=== PATIENT | male | born 1970 | race Two or more races ===

== ENCOUNTER 2017-02-28 23:34 | Emergency (ER) | payer SELFPAY ==
[~2017-02-28] VITALS: Ht 170.2 cm; Wt 86.2 kg
[2017-02-28 23:42] VITALS: BP 134/78
[2017-03-01 01:55] VITALS: BP 134/78
--- NOTE | 2017-03-01 02:08 | Emergency Room Report ---
History of Present Illness General Chief Complaint: Alcohol Intoxication Source: EMS Present Illness HPI Is a 47-year-old male brought in by EMS with chief complaint of alcohol intoxication. He was lying on the ground and bystander called 911. He has a lesion and hematoma to the left eyebrow area. Unable to get any history because of intoxication. History from EMS for Allergies: Coded Allergies: No Known Allergies (Unverified , 02/28/17) Patient History Past Medical History: see triage record, old chart reviewed Past Surgical History: unable to obtain Pertinent Family History: unable to obtain Social History: Reports: alcohol use Immunizations: other Reviewed Nursing Documentation: PMH: Agreed, PSxH: Agreed Nursing Documentation-PMH Past Medical History Deferred: Pt Cognitively Impaired Review of Systems Eye: Denies: eye pain, blurred vision ENT: Denies: ear pain, nose congestion, throat swelling Respiratory: Denies: cough, shortness of breath Cardiovascular: Denies: chest pain, palpitations Gastrointestinal: Denies: abdominal pain, diarrhea, nausea, vomiting Musculoskeletal: Denies: back pain, joint pain Skin: Denies: rash Neurological: Denies: headache, numbness Endocrine: Denies: increased thirst, increased urine Hematologic/Lymphatic: Denies: easy bruising All Other Systems: limited - Secondary to intoxication Physical Exam Vital Signs Date Time Temp Pulse Resp B/P (MAP) Pulse Ox O2 Delivery O2 Flow Rate FiO2 02/28/17 23:30 98.2 131 18 134/78 98 Room Air vitals with tachycardia Sp02 EP Interpretation: reviewed, normal General Appearance: well appearing, no apparent distress, other - Intoxicated Head: normocephalic, other - Abrasion and hematoma to left upper eyebrow area. no laceration. Eyes: bilateral eye PERRL, bilateral eye EOMI ENT: hearing grossly normal, normal pharynx Neck: full range of motion, supple, no meningismus Respiratory: chest non-tender, lungs clear, normal breath sounds Cardiovascular #1: regular rate, rhythm, no murmur, tachycardia - Heart rate 110 Gastrointestinal: normal bowel sounds, non tender, no mass, no organomegaly, no bruit, non-distended Musculoskeletal: back normal, normal range of motion Neurologic: grossly normal Psychiatric: mood/affect normal Skin: warm/dry Medical Decision Making Diagnostic Impression: Primary Impression: Acute alcoholic intoxication Qualified Codes: F10.929 - Alcohol use, unspecified with intoxication, unspecified Additional Impression: Head injury Qualified Codes: S09.90XA - Unspecified injury of head, initial encounter ER Course Patient presents with head injury secondary to a clot intoxication. He probably had fallen. His CT scan by my looked at it showed no evidence of bleed or skull fracture. I wanted to wait for the official reading. Patient is now walking around and is alert. He said he wants to leave. He is talking without any slurred speech. Walking without any ataxia. I advised him to stay for at least another 30 minutes for report on the CT. He refuse. CT/MRI/US Diagnostic Results CT/MRI/US Diagnostic Results : Imaging Test Ordered: CT head Impression read by radiologist as negative. Last Vital Signs Date Time Temp Pulse Resp B/P (MAP) Pulse Ox O2 Delivery O2 Flow Rate FiO2 02/28/17 23:42 98.2 131 18 134/78 98 Room Air Status: improved Disposition: HOME, SELF-CARE Condition: Stable Referrals: NOT CHOSEN IPA/MD,REFERRING (PCP) Patient Instructions: Alcohol Intoxication, [id number] Additional Instructions: abstain from drinking to excess. Go to rehabilitation. followup with your DrKaitlin in 7 days. Return if symptom worsen. JERED KOHLI M.D. Mar 01, 2017 02:08
--- NOTE | 2017-03-01 10:15 | Diagnostic Imaging Report ---
Indication: Trauma. Left eye laceration. Technique: Continuous helical CT scanning of the head was performed utilizing automated exposure control without intravenous contrast material. Axial and coronal reconstructions were obtained. Comparison: None CT dose: Total DLP 1509.72 mGycm; CTDI vol 70.38 mGy Findings: There is no acute intracranial hemorrhage, mass effect or cortical edema. The size and configuration of the ventricular system is normal for age. The posterior fossa and fourth ventricle are unremarkable. There is left periorbital soft tissue swelling. The left globe appears intact. There is no definite/displaced skull fracture. Mucosal thickening noted within the right maxillary sinus and some ethmoid air cells. Mastoid air cells are clear. Impression: Left periorbital soft tissue swelling. No skull fracture. No evidence of acute intracranial hemorrhage, mass effect, midline shift or cortical edema. Sinus disease. This corresponds with the statrad preliminary report. The CT scanner at [facility] is accredited by the [employer] and the scans are performed using protocols designed to limit radiation exposure to as low as reasonably achievable to attain images of sufficient resolution adequate for diagnostic evaluation.
== END 2017-03-01 01:55 | disposition home or self-care (01) ==
LOC: EDBD 23:34 → EMR 23:52
DX: F10.129 Alcohol abuse with intoxication, unspecified (principal); S00.12XA Contusion of left eyelid and periocular area, initial encounter; S00.212A Abrasion of left eyelid and periocular area, initial encounter; W19.XXXA Unspecified fall, initial encounter; Y92.89 Other specified places as the place of occurrence of the external cause
CPT/HCPCS: 70450; 99284

== ENCOUNTER 2017-06-14 17:39 | Emergency (ER) | payer SELFPAY ==
[~2017-06-14] VITALS: Ht 170.2 cm; Wt 72.6 kg
[2017-06-14 17:43] VITALS: BP 136/87
--- NOTE | 2017-06-14 19:22 | Emergency Room Report ---
History of Present Illness General Chief Complaint: Alcohol Intoxication Source: Patient Present Illness HPI 47 yo male patient presents to ER BIB ambulance complaining of ETOH intoxication. Patient was allegedly found drunk on the ground in front of a juice stop. Report no evidence of head trauma. Previously seen in ER for similar symptoms. Patient is a poor historian. Patient fell asleep during interview due to alcohol intoxication. Patient denies chest pain, COSTA, abdominal pain. Denies suicidal ideation. Allergies: Coded Allergies: No Known Allergies (Unverified , 02/28/17) UNABLE TO ASSESS (Unverified , 06/14/17) Patient History Past Medical History: see triage record Reviewed Nursing Documentation: PMH: Agreed; PSxH: Agreed Nursing Documentation-PMH Past Medical History: No Stated History Review of Systems All Other Systems: negative except mentioned in HPI Physical Exam Vital Signs Date Time Temp Pulse Resp B/P (MAP) Pulse Ox O2 Delivery O2 Flow Rate FiO2 06/14/17 17:37 96.6 104 16 136/87 100 Room Air 96.6 Sp02 EP Interpretation: reviewed, normal General Appearance: well appearing, no apparent distress, alert, GCS 15, non- toxic Head: normocephalic, atraumatic, other - negative Raccoon eyes, Negative Peters sign Eyes: bilateral eye normal inspection, bilateral eye PERRL ENT: hearing grossly normal, normal pharynx, no angioedema, normal voice, uvula midline, moist mucus membranes Neck: full range of motion Respiratory: lungs clear, normal breath sounds, no rhonchi, no respiratory distress, no accessory muscle use, no wheezing, speaking full sentences Cardiovascular #1: regular rate, rhythm, no edema Gastrointestinal: non tender, soft, no mass, non-distended, no guarding, no rebound Musculoskeletal: back normal, digits/nails normal, gait/station normal, normal range of motion, non-tender, no calf tenderness Skin: no rash Medical Decision Making PA Attestation Dr. Goldberg is my supervising Physician whom patient management has been discussed with. Diagnostic Impression: Primary Impression: Acute alcoholic intoxication ER Course Pt. presents to the ED BIB ambulance c/o ETOH. Unable to complete full interview of patient secondary to alcohol intoxication. Ddx considered but are not limited to drug use, alcohol use, psychosis. Vital signs: are WNL, pt. is afebrile No ordered labs.. ER COURSE: PE benign. No signs of head trauma. Patient does not require CT head at this time. Will allow patient to sober up from alcohol. After clinically sober, patient OK for discharge. Patient resting comfortably in bed. Patient heard audibly crying in bed. Patient urinated in his clothes, clothes removed, patient placed in gown. 0850PM Patient awake and trying to leave ER. Patient ambulating independently, not slurring speech. Patient provided with clothes. Patient OK for discharge. Do not believe patient is a danger to himself or others. Patient reports he will take Lyft home. Do not drink alcohol in excess. DISCHARGE At this time pt is stable for d/c to home. Patient is resting comfortably, in no acute distress, nontoxic appearing, talking without difficulty. Patient to take medications as instructed Will provide with patient care instructions and any necessary prescriptions. Care plan and follow-up instructions provided. Patient instructed to follow-up with primary care provider in 3 - 5 days. Patient questions asked and answered. Patient reports understanding and agreement to treatment plan. ER precautions given. Patient instructed to return to ER immediately for any new or worsening of symptoms including but not limited to increasing SOB, persistent fever. Last Vital Signs Date Time Temp Pulse Resp B/P (MAP) Pulse Ox O2 Delivery O2 Flow Rate FiO2 06/14/17 17:43 96.6 104 16 136/87 100 Room Air 96.6 Disposition: HOME, SELF-CARE Condition: Stable Patient Instructions: Alcohol Intoxication, [id number] Additional Instructions: Followup with primary care provider in 3 -5 days. Avoid excessive intake of alcohol. Take medications as directed. Patient questions asked and answered. ER precautions given, patient instructed to return to ER immediately for any new or worsening of symptoms. Jaspal Bell Jun 14, 2017 19:22
[2017-06-14 20:57] VITALS: BP 0/0
== END 2017-06-14 20:57 | disposition home or self-care (01) ==
LOC: EDBD 17:39 → EMR 19:39
DX: F10.129 Alcohol abuse with intoxication, unspecified (principal)
CPT/HCPCS: 99283